=== PATIENT | female | born 1935 | race Hispanic/Latino ===

== ENCOUNTER 2016-11-08 09:59 | Inpatient (IN) | payer MEDICARE, MEDICAID ==
[2016-11-09 01:18] VITALS: BMI 26.9
[2016-11-09] MEDS ORDERED: Albuterol 0.083% Inhal Sol (2.5 mg/3 mL) UD INH PRN ×2 (01:30→02:06)
[2016-11-09 06:30] LABS: HEMATOCRIT 35.3 % (34.0-47.0); MEAN CELL VOLUME 88.4 fl (81.0-99.0); MEAN CORPUSCULAR HEMOGLOBIN 29.8 pg (27.0-31.0); MEAN CORPUSCULAR HGB CONC 33.7 g/dL (33.0-37.0); RED CELL DISTRIBUTION WIDTH 13.5 % (11.5-14.5); WHITE BLOOD COUNT 8.3 K/uL (4.8-10.8)
[2016-11-09] MEDS ORDERED: Levothyroxine 75 MCG TAB PO SCH (06:30)
[2016-11-09 06:47] LABS: ALB/GLOB RATIO 1.2 (1.0-2.1); ALKALINE PHOSPHATASE 93 U/L (38-126); ALT/SGPT 63 U/L (9-52); AST/SGOT 97 U/L (14-36); BILIRUBIN,TOTAL 1.3 mg/dl (0.2-1.3); BLOOD UREA NITROGEN 23 mg/dl (7-17); CALCIUM 8.5 mg/dL (8.4-10.2); CARBON DIOXIDE 26 mmol/L (22-30); CHLORIDE 100 mmol/L (98-107); GFR AFRICAN-AMERICAN > 60; GLUCOSE,RANDOM 98 mg/dL (65-105); POTASSIUM 3.5 MMOL/L (3.6-5.0); SODIUM 138 mmol/l (132-148); TOTAL PROTEIN 6.7 G/DL (6.3-8.2)
[2016-11-09] MEDS: Levothyroxine 75 MCG TAB PO SCH (06:55)
[2016-11-09 08:46] LABS: VENOUS BLOOD GAS BASE EXCESS 4.6 mmol/L (0.0-2.0); VENOUS BLOOD GAS PCO2 38 mmHg (40-60); VENOUS BLOOD PH 7.48 (7.32-7.43)
[2016-11-09 08:59] LABS: RBC URINE 16 /hpf (0-3); URINE BACTERIA RARE (<OCC); URINE BILIRUBIN NEGATIVE (NEGATIVE); URINE BLOOD MODERATE (NEGATIVE); URINE COLOR AMBER (YELLOW); URINE GLUCOSE (UA) NEG (Normal); URINE KETONE TRACE mg/dL (NEGATIVE); URINE LEUKOCYTE ESTERASE LARGE Leu/uL (Negative); URINE PROTEIN 30 mg/dL (NEGATIVE); URINE UROBILINOGEN 0.2-1.0 mg/dL (0.2-1.0); WBC URINE 21 /hpf (0-5)
[2016-11-09] MEDS ORDERED: Cilostazol 50 mg Tab UD PO SCH (09:00)
[2016-11-09 09:08] LABS: ALKALINE PHOSPHATASE 80 U/L (38-126); AST/SGOT 63 U/L (14-36); BILIRUBIN,TOTAL 1.3 mg/dl (0.2-1.3); BLOOD UREA NITROGEN 18 mg/dl (7-17); CALCIUM 8.7 mg/dL (8.4-10.2); CARBON DIOXIDE 25 mmol/L (22-30); CHLORIDE 99 mmol/L (98-107); GFR AFRICAN-AMERICAN > 60; GLUCOSE,RANDOM 130 mg/dL (65-105); POTASSIUM 3.3 MMOL/L (3.6-5.0); SODIUM 135 mmol/l (132-148); TOTAL PROTEIN 7.1 G/DL (6.3-8.2)
[2016-11-09 09:09] LABS: BASO % 0.2 % (0.0-2.0); HEMATOCRIT 36.1 % (34.0-47.0); LYMPH # 0.3 K/uL (1.0-4.3); LYMPH % 2.9 % (20.0-40.0); MEAN CELL VOLUME 87.1 fl (81.0-99.0); MEAN CORPUSCULAR HEMOGLOBIN 29.5 pg (27.0-31.0); MEAN CORPUSCULAR HGB CONC 33.8 g/dL (33.0-37.0); MEAN PLATELET VOLUME 8.5 fl (7.2-11.7); MONO # 0.9 K/uL (0.0-0.8); MONO % 8.8 % (0.0-10.0); NEUT # 9.1 K/uL (1.8-7.0); NEUT % 88.1 % (50.0-75.0); PLATELET COUNT 177 K/uL (130-400); RED CELL DISTRIBUTION WIDTH 13.5 % (11.5-14.5); WHITE BLOOD COUNT 10.3 K/uL (4.8-10.8)
[2016-11-09 09:10] LABS: ALB/GLOB RATIO 1.2 (1.0-2.1); ALT/SGPT 46 U/L (9-52); LIPASE 65 U/L (23-300)
[2016-11-09 09:12] LABS: NEUTROPHIL 87 % (42-75); REACTIVE LYMPHOCYTES 1 % (0-0); TOTAL CELLS COUNTED 100
--- NOTE | 2016-11-09 09:15 | CP.PCM.CON ---
History of Present Illness - History of Present Illness History of Present Illness: THE PATIENT IS AN 80 YEAR OLD FEMALE WITH A HISTORY OF HYPERTENSION, HYPERLIPIDEMIA, CHRONIC ATRIAL FIBRILLATION, COPD, PAD AND HYPOTHYROIDISM. SHE DENIES KNOWN CAD, CHEST PAIN OR MA IN THE PAST. BUT, SHE DESCRIBES WHAT SOUNDS LIKE A CARDIAC CATH BY DR BOLANOS ABOUT ONE YEAR AGO AND SHE STATES THAT THE ARTERIES WERE FINE. SHE NOW STATES THAT SHE WAS IN [place] ON 11/06/16 AND ATE A HAMBURGER AND WAS OK THAT DAY. ON 11/07/16 SHE HAD MANY EPISODES OF DIARRHEA THAT PERSISTED 11/08/16 AM SO SHE CAME TO THE ER AND WAS DIAGNOSED WITH GASTROENTERITIS AND ADMITTED. CARDIOLOGY WAS CALLED DUE TO AN ELEVATED TROPONIN , BUT AGAIN SHE DENIES ANY CHEST PAIN AND FEELS FINE. Past Patient History - Past Medical History & Family History Past Medical History?: Yes - Past Social History Smoking Status: Former Smoker - CARDIAC Hx Cardia Arrhythmia: Yes (A FIB) Hx Hypercholesterolemia: Yes Hx Hypertension: Yes - PULMONARY Hx Chronic Obstructive Pulmonary Disease (COPD): Yes - NEUROLOGICAL Hx Neurological Disorder: No - HEENT Hx HEENT Problems: Yes Hx Cataracts: Yes Other/Comment: wears eyeglasses - RENAL Hx Chronic Kidney Disease: No - ENDOCRINE/METABOLIC Hx Hypothyroidism: Yes - HEMATOLOGICAL/ONCOLOGICAL Hx Blood Disorders: Yes Hx Cancer: Yes (right breast) - INTEGUMENTARY Hx Dermatological Problems: No - MUSCULOSKELETAL/RHEUMATOLOGICAL Hx Musculoskeletal Disorders: No - GASTROINTESTINAL Hx Gall Bladder Disease: Yes - GENITOURINARY/GYNECOLOGICAL Hx Genitourinary Disorders: No - PSYCHIATRIC Hx Psychophysiologic Disorder: No Hx Substance Use: No - SURGICAL HISTORY Hx Cholecystectomy: Yes - ANESTHESIA Hx Anesthesia: Yes Hx Anesthesia Reactions: No Hx Malignant Hyperthermia: No Meds Allergies/Adverse Reactions: Allergies Allergy/AdvReac Type Severity Reaction Status Date / Time Penicillins Allergy RASH Verified 12/16/15 09:01 - Medications Medications: Current Medications Albuterol Sulfate (Albuterol 0.083% Inhal Giuliana (2.5 Mg/3 Ml) Ud) 2.5 mg INH RQ6 PRN PRN Reason: Shortness of Breath Apixaban (Eliquis) 2.5 mg PO BID [facility] PRN Reason: Protocol Aspirin (Aspirin) 325 mg PO DAILY [facility] Atorvastatin Calcium (Lipitor) 20 mg PO HS [facility] Cilostazol (Pletal) 50 mg PO BID [facility] Levothyroxine Sodium (Synthroid) 75 mcg PO DAILY@0630 [facility] Last Admin: 11/09/16 06:55 Dose: 75 mcg Losartan Potassium (Cozaar) 50 mg PO DAILY [facility] Metoprolol Tartrate (Lopressor) 100 mg PO BID [facility] Physical Exam - Respiratory Exam Respiratory Exam: Clear to Auscultation Bilateral - Cardiovascular Exam Cardiovascular Exam: Irregular Rhythm, +S1, +S2 - Extremities Exam Extremities exam: Positive for: normal inspection - Additional Findings Additional findings: EKG ATRIAL FIBRILLATION NO ACUTE CHANGES TROPONIN 0.6 AND 1.9 PBNP ELEVATED CXR CLEAR LUNG ALMODOVAR I SPOKE TO DR BOLANOS WHO REVIEWED A CARDIAC CATH DONE IN NOVEMBER OF 2015 AND IT ONLY SHOWED MILD DISEASE Results - Vital Signs Recent Vital Signs: Last Vital Signs Temp 98.0 F 11/09/16 08:21 Pulse 86 11/09/16 08:21 Resp 20 11/09/16 08:21 BP 117/73 11/09/16 08:21 Pulse Ox 98 11/09/16 08:21 - Labs Result Diagrams: 11/09/16 05:25 11/09/16 05:25 Labs: Laboratory Results - last 24 hr 11/08/16 11/09/16 11/09/16 18:00 05:25 05:25 WBC 8.3 RBC 4.00 Hgb 11.9 L Hct 35.3 MCV 88.4 MCH 29.8 MCHC 33.7 RDW 13.5 Plt Count 158 Sodium 138 Potassium 3.5 L Chloride 100 Carbon Dioxide 26 Anion Gap 16 BUN 23 H Creatinine 0.8 Est GFR ( Amer) > 60 Est GFR (Non-Af Amer) > 60 Random Glucose 98 Calcium 8.5 Total Bilirubin 1.3 AST 97 H D ALT 63 H D Alkaline Phosphatase 93 Troponin I 1.9500 H* Total Protein 6.7 Albumin 3.7 Globulin 3.0 Albumin/Globulin Ratio 1.2 Urine Color Do Urine Clarity Slighty-cloudy Urine pH 5.0 Ur Specific [place] 1.020 Urine Protein 30 Urine Glucose (UA) Neg Urine Ketones Trace Urine Blood Moderate Urine Nitrate Negative Urine Bilirubin Negative Urine Urobilinogen 0.2-1.0 Ur Leukocyte Esterase Large Urine RBC (Auto) 16 H Urine Microscopic WBC 21 H Ur Squamous Epith Cells 3 Urine Bacteria Rare Hyaline Casts 0-2 Assessment & Plan - Assessment and Plan (Free Text) Assessment: HISTORY OF CHRONIC ATRIAL FIBRILLATION HYPERTENSION HYPERLIPIDEMIA COPD ELEVATED PBNP MAY BE FROM COPD ELEVATED TROPONINS-CHEST PAIN FREE AND NO ACUTE CHANGES ON EKG DOUBT NSTEMI CLINICALLY AND WITH KNOWLEDGE OF CARDIAC CATH RESULTS. MYOCARDITIS ? Plan: THE PATIENT WAS ADMITTED TO 4N ON TELEMETRY SHE WAS TREATED WITH O2, BETA BLOCKERS, ASA, LOSARTAN, ATORVASTATIN, ELIQUIS SERIAL EKGS AND CE, ECHOCARDIOGRAM I SPOKE TO DR BOLANOS WHO BELIEVES THAT THE PATIENT DOESN'T NEED A REPEAT CARDIAC CATH AT THE PRESENT TIME SINCE IT WAS JUST DONE IN NOVEMBER 2015 AND THAT SHE CAN BE DISCHARGED WHEN STABLE AND HE WILL SEE HER IN HIS OFFICE NEXT WEEK
[2016-11-09 09:41] LABS: PARTIAL THROMBOPLASTIN TIME 28.5 SECONDS (23.3-32.5)
--- NOTE | 2016-11-09 10:00 | RAD ---
HISTORY: Cough COMPARISON: No prior. FINDINGS: LUNGS: No active pulmonary disease. PLEURA: Opacity at right costophrenic angle may reflect small pleural effusion or chronic pleural thickening. CARDIOVASCULAR: Normal. OSSEOUS STRUCTURES: No significant abnormalities. VISUALIZED UPPER ABDOMEN: Normal. OTHER FINDINGS: None. IMPRESSION: No acute infiltrate. Small right pleural effusion versus chronic pleural thickening.
[2016-11-09] MEDS: Cilostazol 50 mg Tab UD PO SCH ×2 (10:28→16:38)
--- NOTE | 2016-11-09 14:59 | CP.PCM.PN ---
<Sparkle Matos - Last Filed: 11/10/16 13:32> Subjective - Date & Time of Evaluation Date of Evaluation: 11/09/16 Time of Evaluation: 07:15 - Subjective Subjective: Patient was seen and examined at bedside. Patient feels better this morning. Denies chest pain, SOB, nausea, vomting, abdominal pain or diarrheas this morning. Objective - Vital Signs/Intake and Output Vital Signs (last 24 hours): Temp Pulse Resp BP Pulse Ox 99.3 F 101 H 20 122/74 93 L 11/09/16 12:48 11/09/16 12:48 11/09/16 12:48 11/09/16 12:48 11/09/16 12:48 - Medications Medications: Current Medications Albuterol Sulfate (Albuterol 0.083% Inhal Giuliana (2.5 Mg/3 Ml) Ud) 2.5 mg INH RQ6 PRN PRN Reason: Shortness of Breath Apixaban (Eliquis) 2.5 mg PO BID [facility] PRN Reason: Protocol Last Admin: 11/09/16 11:33 Dose: Not Given Aspirin (Aspirin) 325 mg PO DAILY [facility] Last Admin: 11/09/16 10:28 Dose: Not Given Atorvastatin Calcium (Lipitor) 20 mg PO [facility] Cilostazol (Pletal) 50 mg PO BID [facility] Last Admin: 11/09/16 10:28 Dose: Not Given Levothyroxine Sodium (Synthroid) 75 mcg PO DAILY@0630 [facility] Last Admin: 11/09/16 06:55 Dose: 75 mcg Losartan Potassium (Cozaar) 50 mg PO DAILY [facility] Last Admin: 11/09/16 10:28 Dose: Not Given Metoprolol Tartrate (Lopressor) 100 mg PO BID [facility] Last Admin: 11/09/16 10:27 Dose: Not Given Ondansetron HCl (Zofran Inj) 4 mg IVP Q6 PRN PRN Reason: Nausea/Vomiting Last Admin: 11/09/16 12:53 Dose: 4 mg - Labs Labs: 11/09/16 05:25 11/09/16 05:25 PT 12.0 SECONDS (9.6-11.2) H 11/08/16 11:30 INR 1.15 (0.92-1.08) H 11/08/16 11:30 APTT 28.5 SECONDS (23.3-32.5) 11/08/16 11:30 - Constitutional Appears: Non-toxic, No Acute Distress - ENT Exam ENT Exam: Mucous Membranes Moist - Respiratory Exam Respiratory Exam: Clear to Ausculation Bilateral, NORMAL BREATHING PATTERN - Cardiovascular Exam Cardiovascular Exam: RRR, +S1, +S2 - GI/Abdominal Exam GI & Abdominal Exam: Soft, Normal Bowel Sounds. absent: Guarding, Rigid, Tenderness - Extremities Exam Extremities Exam: Normal Inspection. absent: Calf Tenderness, Pedal Edema - Neurological Exam Neurological Exam: Alert, Awake, Oriented x3 - Psychiatric Exam Psychiatric exam: Normal Affect, Normal Mood - Skin Skin Exam: Dry, Intact, Normal Color Assessment and Plan - Assessment and Plan (Free Text) Assessment: 81 y/o F with h/o A fib, HTN, COPD, CAD admitted with elevated troponin I to rule out ACS. Plan: Elevated troponin Myocarditis after Viral gastroenteritis? Chest pain free Troponin I: 0.636 No acute changes in EKG Cardiology consult appreciated, Dr. Dietz on board F/U Echo F/U repeat Troponin I today PM and repeat troponin I and EKG tomorrow morning. Nausea/vomiting and diarrheas most likely to Viral Gastroenteritis Improving, but still present IV fluids for hydration Consider advance diet to liquid diet, and continue advancing diet as tolerated Zofran for N/V Held Triamterene and Hyzaar by Cardiology recommendations CAD -Chest pain FREE -s/p Cardiac Cath in 2016 -Started Aspirin 325 mg daily PO. Continue after discharge -Continue with current management COPD no in exacerbation -Stable Home meds HTN Controlled Will monitor Held Triamterene and Hyzaar by Cardiology recommendations DVT Prophylaxis Ambulating Home Jacque <Pavan Martinez - Last Filed: 11/12/16 06:46> Objective - Vital Signs/Intake and Output Vital Signs (last 24 hours): Temp Pulse Resp BP Pulse Ox 98.6 F 81 18 115/74 92 L 11/10/16 09:00 11/10/16 09:20 11/10/16 09:00 11/10/16 09:20 11/10/16 09:00 - Labs Labs: 11/10/16 07:00 11/10/16 07:00 PT 12.0 SECONDS (9.6-11.2) H 11/08/16 11:30 INR 1.15 (0.92-1.08) H 11/08/16 11:30 APTT 28.5 SECONDS (23.3-32.5) 11/08/16 11:30 Attending/Attestation - Attestation I have personally seen and examined this patient.: Yes I have fully participated in the care of the patient.: Yes I have reviewed all pertinent clinical information, including history, physical exam and plan: Yes
--- NOTE | 2016-11-09 16:56 | CARD ---
APPROVED REPORT EXAM: Two-dimensional and M-mode echocardiogram with Doppler and color Doppler. Other Information Quality : GoodRhythm : Atrial Fibrillation INDICATION Congestive Heart Failure 2D DIMENSIONS IVSd0.87 (0.7-1.1cm)LVDd4.73 (3.9-5.9cm) LVOT Diameter2.23 (1.8-2.4cm)PWd0.98 (0.7-1.1cm) IVSs0.96 (0.8-1.2cm)LVDs3.67 (2.5-4.0cm) FS (%) 22.5 %PWs1.06 (0.8-1.2cm) LVEF (%)40.0 (>50%) M-Mode DIMENSIONS Left Atrium (MM)4.81 (2.5-4.0cm)IVSd0.72 (0.7-1.1cm) Aortic Root3.50 (2.2-3.7cm)LVDd5.19 (4.0-5.6cm) Aortic Cusp Exc.2.19 (1.5-2.0cm)PWd1.06 (0.7-1.1cm) IVSs0.97 cmFS (%) 22 % LVDs4.06 (2.0-3.8cm)PWs1.31 cm Mitral Valve E/A ratio0.0 TDI E/Lateral E'0.0E/Medial E'0.0 Tricuspid Valve TR Peak [id number] [id number] Peak Gr.14mmHg [id number] LEFT VENTRICLE The left ventricle is normal size. There is normal left ventricular wall thickness. The systolic function is moderately impaired. There is global hypokinesis of the left ventricle. Patient is in A Fib RIGHT VENTRICLE The right ventricle is borderline dilated. There is normal right ventricular wall thickness. Systolic function is mildly to moderately reduced. ATRIA The left atrium is mildly dilated. The right atrium size is normal. AORTIC VALVE The aortic valve is not well visualized. There is trace aortic regurgitation. There is no aortic valvular stenosis. MITRAL VALVE The mitral valve is mildly thickened. There is no mitral valve stenosis. Mitral regurgitation is mild. TRICUSPID VALVE The anterior leaflet is thickened. There is trace to mild tricuspid regurgitation. PULMONIC VALVE The pulmonary valve is normal in structure There is trace pulmonic valvular regurgitation. GREAT VESSELS The aortic root is normal in size. The IVC is normal in size and collapses >50% with inspiration. PERICARDIAL EFFUSION The pericardium appears normal. <Conclusion> The left ventricle is normal size. There is normal left ventricular wall thickness. The systolic function is moderately impaired. There is global hypokinesis of the left ventricle. There is trace aortic regurgitation. Mitral regurgitation is mild.
--- NOTE | 2016-11-09 22:12 | CARD ---
APPROVED REPORT EKG Measurement Heart [id number] <Conclusion> Atrial fibrillation Nonspecific T wave abnormality Prolonged QT Abnormal ECG
[2016-11-09 23:46] VITALS: RESP 18
[2016-11-10] MEDS: Levothyroxine 75 MCG TAB PO SCH (06:35)
[2016-11-10 07:43] LABS: BLOOD UREA NITROGEN 22 mg/dl (7-17); CALCIUM 8.8 mg/dL (8.4-10.2); CARBON DIOXIDE 27 mmol/L (22-30); CHLORIDE 97 mmol/L (98-107); GFR AFRICAN-AMERICAN > 60; GLUCOSE,RANDOM 113 mg/dL (65-105); POTASSIUM 3.4 MMOL/L (3.6-5.0); SODIUM 135 mmol/l (132-148)
[2016-11-10 07:48] LABS: HEMATOCRIT 34.1 % (34.0-47.0); MEAN CELL VOLUME 87.9 fl (81.0-99.0); MEAN CORPUSCULAR HEMOGLOBIN 29.6 pg (27.0-31.0); MEAN CORPUSCULAR HGB CONC 33.7 g/dL (33.0-37.0); RED CELL DISTRIBUTION WIDTH 13.5 % (11.5-14.5); WHITE BLOOD COUNT 8.4 K/uL (4.8-10.8)
[2016-11-10 07:58] VITALS: BP 115/74; TEMP 98.6; O2SAT 92
[2016-11-10 09:20] VITALS: PULSE 81
[2016-11-10] MEDS: Cilostazol 50 mg Tab UD PO SCH (09:20)
[2016-11-10] MEDS ORDERED: Potassium Chloride 20 mEq ER Tab PO ONE (12:30)
--- NOTE | 2016-11-10 13:30 | CP.PCM.DIS ---
<CarloSparkle - Last Filed: 11/10/16 14:02> Provider - Provider Date of Admission: 11/08/16 14:56 Attending physician: Killian Raymundo MD Time Spent in preparation of Discharge (in minutes): 30 Diagnosis - Discharge Diagnosis (1) Elevated troponin I level Status: Acute Priority: High (2) CAD (coronary artery disease) Status: Chronic Priority: High Comment: Asymptomatic. C/w current management. F/U with Cardiology, Dr. Stephenson (3) COPD (chronic obstructive pulmonary disease) Status: Chronic Priority: Medium Comment: No in exacerbation (4) Gastroenteritis Status: Acute Priority: High Comment: Most likely viral. Resolved during admission Hospital Course - Lab Results Lab Results: Most Recent Lab Values WBC 8.4 K/uL (4.8-10.8) 11/10/16 07:00 RBC 3.87 Mil/uL (3.80-5.20) 11/10/16 07:00 Hgb 11.5 g/dL (12.0-16.0) L 11/10/16 07:00 Hct 34.1 % (34.0-47.0) 11/10/16 07:00 MCV 87.9 fl (81.0-99.0) 11/10/16 07:00 MCH 29.6 pg (27.0-31.0) 11/10/16 07:00 MCHC 33.7 g/dL (33.0-37.0) 11/10/16 07:00 RDW 13.5 % (11.5-14.5) 11/10/16 07:00 Plt Count 157 K/uL (130-400) 11/10/16 07:00 MPV 8.5 fl (7.2-11.7) 11/08/16 11:30 Neut % (Auto) 88.1 % (50.0-75.0) H 11/08/16 11:30 Lymph % (Auto) 2.9 % (20.0-40.0) L 11/08/16 11:30 [place] % (Auto) 8.8 % (0.0-10.0) 11/08/16 11:30 Eos % (Auto) 0.0 % (0.0-4.0) 11/08/16 11:30 Baso % (Auto) 0.2 % (0.0-2.0) 11/08/16 11:30 Neut # 9.1 K/uL (1.8-7.0) H 11/08/16 11:30 Lymph # 0.3 K/uL (1.0-4.3) L 11/08/16 11:30 [place] # 0.9 K/uL (0.0-0.8) H 11/08/16 11:30 Eos # 0.0 K/uL (0.0-0.7) 11/08/16 11:30 Baso # 0.0 K/uL (0.0-0.2) 11/08/16 11:30 Neutrophils % (Manual) 87 % (42-75) H 11/08/16 11:30 Band Neutrophils % 4 % (0-2) H 11/08/16 11:30 Lymphocytes % (Manual) 2 % (20-50) L 11/08/16 11:30 Reactive Lymphs % 1 % (0-0) H 11/08/16 11:30 Monocytes % (Manual) 6 % (0-10) 11/08/16 11:30 Nucleated RBC % % (0-0) 11/08/16 11:30 Platelet Estimate Normal (NORMAL) 11/08/16 11:30 PT 12.0 SECONDS (9.6-11.2) H 11/08/16 11:30 INR 1.15 (0.92-1.08) H 11/08/16 11:30 APTT 28.5 SECONDS (23.3-32.5) 11/08/16 11:30 pO2 49 mm/Hg (30-55) 11/08/16 11:00 VBG pH 7.48 (7.32-7.43) H 11/08/16 11:00 VBG pCO2 38 mmHg (40-60) L 11/08/16 11:00 VBG HCO3 28.2 mmol/L 11/08/16 11:00 VBG O2 Sat (Calc) 88.5 % (40-65) H 11/08/16 11:00 VBG Base Excess 4.6 mmol/L (0.0-2.0) H 11/08/16 11:00 Sodium 135 mmol/l (132-148) 11/10/16 07:00 Potassium 3.4 MMOL/L (3.6-5.0) L 11/10/16 07:00 Chloride 97 mmol/L (98-107) L 11/10/16 07:00 Carbon Dioxide 27 mmol/L (22-30) 11/10/16 07:00 Anion Gap 14 (10-20) 11/10/16 07:00 BUN 22 mg/dl (7-17) H 11/10/16 07:00 Creatinine 0.8 mg/dL (0.7-1.2) 11/10/16 07:00 Est GFR ( Amer) > 60 11/10/16 07:00 Est GFR (Non-Af Amer) > 60 11/10/16 07:00 Random Glucose 113 mg/dL (65-105) H 11/10/16 07:00 Calcium 8.8 mg/dL (8.4-10.2) 11/10/16 07:00 Total Bilirubin 1.3 mg/dl (0.2-1.3) 11/09/16 05:25 AST 97 U/L (14-36) H D 11/09/16 05:25 ALT 63 U/L (9-52) H D 11/09/16 05:25 Alkaline Phosphatase 93 U/L (38-126) 11/09/16 05:25 Troponin I 0.9900 ng/mL (0.00-0.120) H* 11/10/16 07:00 NT-Pro-B Natriuret Pep 9410 pg/ml (0-900) H 11/08/16 11:30 Total Protein 6.7 G/DL (6.3-8.2) 11/09/16 05:25 Albumin 3.7 g/dL (3.5-5.0) 11/09/16 05:25 Globulin 3.0 gm/dL (2.2-3.9) 11/09/16 05:25 Albumin/Globulin Ratio 1.2 (1.0-2.1) 11/09/16 05:25 Lipase 65 U/L (23-300) 11/08/16 11:30 Urine Color Do (YELLOW) 11/08/16 18:00 Urine Clarity Slighty-cloudy (Clear) 11/08/16 18:00 Urine pH 5.0 (5.0-8.0) 11/08/16 18:00 Ur Specific [place] 1.020 (1.003-1.030) 11/08/16 18:00 Urine Protein 30 mg/dL (NEGATIVE) 11/08/16 18:00 Urine Glucose (UA) Neg mg/dL (Normal) 11/08/16 18:00 Urine Ketones Trace mg/dL (NEGATIVE) 11/08/16 18:00 Urine Blood Moderate (NEGATIVE) 11/08/16 18:00 Urine Nitrate Negative (NEGATIVE) 11/08/16 18:00 Urine Bilirubin Negative (NEGATIVE) 11/08/16 18:00 Urine Urobilinogen 0.2-1.0 mg/dL (0.2-1.0) 11/08/16 18:00 Ur Leukocyte Esterase Large [place]/uL (Negative) 11/08/16 18:00 Urine RBC (Auto) 16 /hpf (0-3) H 11/08/16 18:00 Urine Microscopic WBC 21 /hpf (0-5) H 11/08/16 18:00 Ur Squamous Epith Cells 3 /hpf (0-5) 11/08/16 18:00 Urine Bacteria Rare (<OCC) 11/08/16 18:00 Hyaline Casts 0-2 /hpf (0-2) 11/08/16 18:00 Influenza Typ A,B (EIA) Negative for flu a/b (NEGATIVE) 11/08/16 10:47 - Hospital Course Hospital Course: 81 y/o F with PMHx of Afib in anticoagulation, HTN, COPD, CAD s/p cardiac cath who came in with less than one day h/o nausea, vomiting and diarrhea, troponin I was elevated and patient was admitted to r/o ACS. During admission patient was chest pain free, and gastrointestinal symptoms resolved. Cardiology was consulted due to elevated Troponin I and h/o CAD. Aspirin was started and continue during admission. Repeated Troponin I were trending down and patient was asymptomatic. Dr. Stephenson, patient's cardroom hand was consulted and recommended just follow up in 2 weeks as outpatient. Home medication: Aspirin 325 mg PO daily C/w home medications - Date & Time of H&P Date of H&P: 11/08/16 Time of H&P: 02:20 Discharge Exam - Additional Findings Additional findings: Constitutional Appears: Non-toxic, No Acute Distress - ENT Exam ENT Exam: Mucous Membranes Moist - Respiratory Exam Respiratory Exam: Clear to Ausculation Bilateral, NORMAL BREATHING PATTERN - Cardiovascular Exam Cardiovascular Exam: RRR, +S1, +S2 - GI/Abdominal Exam GI & Abdominal Exam: Soft, Normal Bowel Sounds. absent: Guarding, Rigid, Tenderness - Extremities Exam Extremities Exam: Normal Inspection. absent: Calf Tenderness, Pedal Edema - Neurological Exam Neurological Exam: Alert, Awake, Oriented x3 - Psychiatric Exam Psychiatric exam: Normal Affect, Normal Mood - Skin Skin Exam: Dry, Intact, Normal Color Discharge Plan - Discharge Medications Prescriptions: Aspirin 325 mg PO DAILY #30 tab - Follow Up Plan Condition: GOOD Disposition: HOME/ ROUTINE Instructions: Hypertension (DC), Hypertension (GEN) Additional Instructions: Activity as tolerated. no strenous activity. Heart healthy, low fat, low cholesterol diet. Follow-up w/ Dr. Raymundo and Dr Stephenson to call for appt Saturday. Referrals: Jack Stephenson MD [Medical Doctor] - Killian Raymundo MD [Emergency Provider] - <Janis Arriola - Last Filed: 11/11/16 08:25> Provider - Provider Date of Admission: 11/08/16 14:56 Attending physician: Killian Raymundo MD Hospital Course - Lab Results Lab Results: Micro Results 11/08/16 Unknown Urine,Random Urine Culture - Final 10-50,000 CFU/ML. MULTIPLE SPECIES. PROBABLE CONTAMINATION. Most Recent Lab Values WBC 8.4 K/uL (4.8-10.8) 11/10/16 07:00 RBC 3.87 Mil/uL (3.80-5.20) 11/10/16 07:00 Hgb 11.5 g/dL (12.0-16.0) L 11/10/16 07:00 Hct 34.1 % (34.0-47.0) 11/10/16 07:00 MCV 87.9 fl (81.0-99.0) 11/10/16 07:00 MCH 29.6 pg (27.0-31.0) 11/10/16 07:00 MCHC 33.7 g/dL (33.0-37.0) 11/10/16 07:00 RDW 13.5 % (11.5-14.5) 11/10/16 07:00 Plt Count 157 K/uL (130-400) 11/10/16 07:00 MPV 8.5 fl (7.2-11.7) 11/08/16 11:30 Neut % (Auto) 88.1 % (50.0-75.0) H 11/08/16 11:30 Lymph % (Auto) 2.9 % (20.0-40.0) L 11/08/16 11:30 [place] % (Auto) 8.8 % (0.0-10.0) 11/08/16 11:30 Eos % (Auto) 0.0 % (0.0-4.0) 11/08/16 11:30 Baso % (Auto) 0.2 % (0.0-2.0) 11/08/16 11:30 Neut # 9.1 K/uL (1.8-7.0) H 11/08/16 11:30 Lymph # 0.3 K/uL (1.0-4.3) L 11/08/16 11:30 [place] # 0.9 K/uL (0.0-0.8) H 11/08/16 11:30 Eos # 0.0 K/uL (0.0-0.7) 11/08/16 11:30 Baso # 0.0 K/uL (0.0-0.2) 11/08/16 11:30 Neutrophils % (Manual) 87 % (42-75) H 11/08/16 11:30 Band Neutrophils % 4 % (0-2) H 11/08/16 11:30 Lymphocytes % (Manual) 2 % (20-50) L 11/08/16 11:30 Reactive Lymphs % 1 % (0-0) H 11/08/16 11:30 Monocytes % (Manual) 6 % (0-10) 11/08/16 11:30 Nucleated RBC % % (0-0) 11/08/16 11:30 Platelet Estimate Normal (NORMAL) 11/08/16 11:30 PT 12.0 SECONDS (9.6-11.2) H 11/08/16 11:30 INR 1.15 (0.92-1.08) H 11/08/16 11:30 APTT 28.5 SECONDS (23.3-32.5) 11/08/16 11:30 pO2 49 mm/Hg (30-55) 11/08/16 11:00 VBG pH 7.48 (7.32-7.43) H 11/08/16 11:00 VBG pCO2 38 mmHg (40-60) L 11/08/16 11:00 VBG HCO3 28.2 mmol/L 11/08/16 11:00 VBG O2 Sat (Calc) 88.5 % (40-65) H 11/08/16 11:00 VBG Base Excess 4.6 mmol/L (0.0-2.0) H 11/08/16 11:00 Sodium 135 mmol/l (132-148) 11/10/16 07:00 Potassium 3.4 MMOL/L (3.6-5.0) L 11/10/16 07:00 Chloride 97 mmol/L (98-107) L 11/10/16 07:00 Carbon Dioxide 27 mmol/L (22-30) 11/10/16 07:00 Anion Gap 14 (10-20) 11/10/16 07:00 BUN 22 mg/dl (7-17) H 11/10/16 07:00 Creatinine 0.8 mg/dL (0.7-1.2) 11/10/16 07:00 Est GFR ( Amer) > 60 11/10/16 07:00 Est GFR (Non-Af Amer) > 60 11/10/16 07:00 Random Glucose 113 mg/dL (65-105) H 11/10/16 07:00 Calcium 8.8 mg/dL (8.4-10.2) 11/10/16 07:00 Total Bilirubin 1.3 mg/dl (0.2-1.3) 11/09/16 05:25 AST 97 U/L (14-36) H D 11/09/16 05:25 ALT 63 U/L (9-52) H D 11/09/16 05:25 Alkaline Phosphatase 93 U/L (38-126) 11/09/16 05:25 Troponin I 0.9900 ng/mL (0.00-0.120) H* 11/10/16 07:00 NT-Pro-B Natriuret Pep 9410 pg/ml (0-900) H 11/08/16 11:30 Total Protein 6.7 G/DL (6.3-8.2) 11/09/16 05:25 Albumin 3.7 g/dL (3.5-5.0) 11/09/16 05:25 Globulin 3.0 gm/dL (2.2-3.9) 11/09/16 05:25 Albumin/Globulin Ratio 1.2 (1.0-2.1) 11/09/16 05:25 Lipase 65 U/L (23-300) 11/08/16 11:30 Urine Color Do (YELLOW) 11/08/16 18:00 Urine Clarity Slighty-cloudy (Clear) 11/08/16 18:00 Urine pH 5.0 (5.0-8.0) 11/08/16 18:00 Ur Specific [place] 1.020 (1.003-1.030) 11/08/16 18:00 Urine Protein 30 mg/dL (NEGATIVE) 11/08/16 18:00 Urine Glucose (UA) Neg mg/dL (Normal) 11/08/16 18:00 Urine Ketones Trace mg/dL (NEGATIVE) 11/08/16 18:00 Urine Blood Moderate (NEGATIVE) 11/08/16 18:00 Urine Nitrate Negative (NEGATIVE) 11/08/16 18:00 Urine Bilirubin Negative (NEGATIVE) 11/08/16 18:00 Urine Urobilinogen 0.2-1.0 mg/dL (0.2-1.0) 11/08/16 18:00 Ur Leukocyte Esterase Large William/uL (Negative) 11/08/16 18:00 Urine RBC (Auto) 16 /hpf (0-3) H 11/08/16 18:00 Urine Microscopic WBC 21 /hpf (0-5) H 11/08/16 18:00 Ur Squamous Epith Cells 3 /hpf (0-5) 11/08/16 18:00 Urine Bacteria Rare (<OCC) 11/08/16 18:00 Hyaline Casts 0-2 /hpf (0-2) 11/08/16 18:00 Influenza Typ A,B (EIA) Negative for flu a/b (NEGATIVE) 11/08/16 10:47 - Hospital Course Hospital Course: ATTENDING NOTE/ ATTESTATION Patient seen and examined. Case discussed with resident. Agree with plan to discharge to outpatient follow up.
--- NOTE | 2016-11-11 00:19 | CARD ---
APPROVED REPORT EKG Measurement Heart [id number] <Conclusion> Atrial fibrillation Abnormal ECG
== END 2016-11-10 12:23 | disposition home or self-care (01) | DRG 310 ==
LOC: H.EDERROR 09:59 → H.TEL 14:56
PROVIDERS: ADMIT Family Medicine; ATTEND Family Medicine
DX: I48.2 Chronic atrial fibrillation (principal); J44.9 Chronic obstructive pulmonary disease, unspecified; I10 Essential (primary) hypertension; E03.9 Hypothyroidism, unspecified; E78.00 Pure hypercholesterolemia, unspecified; E78.5 Hyperlipidemia, unspecified; I25.10 Atherosclerotic heart disease of native coronary artery without angina pectoris; K52.9 Noninfective gastroenteritis and colitis, unspecified; Z79.82 Long term (current) use of aspirin; Z87.891 Personal history of nicotine dependence